=== PATIENT | male | born 1965 | race Hispanic/Latino ===

== ENCOUNTER 2017-01-11 16:55 | Emergency (ER) | payer MEDICAID ==
[2017-01-11 17:45] VITALS: BMI 29.1
[2017-01-11 17:48] VITALS: BP 164/96; PULSE 89; RESP 16; TEMP 99; O2SAT 97
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
--- NOTE | 2017-01-12 08:32 | RAD ---
PROCEDURE: Right Hip Radiographs. HISTORY: hip pain COMPARISON: None. FINDINGS: BONES: Normal. No fracture. JOINTS: Normal. SOFT TISSUES: Normal. OTHER FINDINGS: None. IMPRESSION: Normal radiographs of right hip.
== END 2017-01-11 20:29 | disposition left against medical advice (07) ==
LOC: ED 16:55
DX: M25.551 Pain in right hip (principal); F17.210 Nicotine dependence, cigarettes, uncomplicated; E11.9 Type 2 diabetes mellitus without complications; I10 Essential (primary) hypertension
CPT/HCPCS: 73502; 96372; 99282; J1885

== ENCOUNTER 2017-01-16 16:37 | Emergency (ER) | payer MEDICAID ==
[2017-01-16 16:37] VITALS: BMI 29.1
[2017-01-16 16:49] VITALS: BP 154/91; PULSE 96; RESP 16; TEMP 97.6; O2SAT 96
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
== END 2017-01-16 17:42 | disposition home or self-care (01) ==
LOC: ED 16:37
DX: S70.01XD Contusion of right hip, subsequent encounter (principal); W01.0XXD Fall on same level from slipping, tripping and stumbling without subsequent striking against object, subsequent encounter
CPT/HCPCS: 72170; 73502; 96372; 99284; J1885

== ENCOUNTER 2017-02-16 09:10 | Emergency (ER) | payer MEDICAID ==
[2017-02-16 09:10] VITALS: BMI 29.1
[2017-02-16 09:18] VITALS: PULSE 100; RESP 20; TEMP 98.3; O2SAT 98
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
[2017-02-16 10:07] VITALS: BP 125/84
== END 2017-02-16 10:12 | disposition home or self-care (01) ==
LOC: ED 09:10
DX: M54.5 Low back pain (principal)
CPT/HCPCS: 96372; 99283; J1885

== ENCOUNTER 2018-06-13 14:05 | Emergency (ER) | payer MEDICAID ==
[2018-06-13 14:06] VITALS: BMI 29.1
[2018-06-13 14:14] VITALS: BP 124/84; PULSE 85; RESP 18; TEMP 98; O2SAT 99
--- NOTE | 2018-06-13 14:49 | ED PDOC ---
Arrival/HPI - General Chief Complaint: Dental Pain Time Seen by Provider: 06/13/18 14:46 Historian: Patient - History of Present Illness Narrative History of Present Illness (Text): 06/13/18 14:52 53 year old male, with past medical history of COPD, alcoholism, depression, anxiety, and DM, presents to the Emergency department complaining of right sided upper gum discomfort since yesterday. Patient states limited food intake secondary to worsening pain prompting him to present to the Emergency department for medical evaluation. Patient informs similar symptoms in the past and was prescribed a "solution" by Dr. Beard with mild improvement to symptoms. Patient states he has a dentist appointment next month however the pain has been severe than before. Patient denies any fevers, chills, headache, dizziness, chest pain, shortness of breath, dyspnea on exertion, cough, abdominal pain, nausea, vomiting, diarrhea, back pain, neck pain, gum discharge or redness, or any other complaints. PMD: Dr. Beard Time/Duration: 24 hours Symptom Onset: Gradual Symptom Course: Unchanged Quality: Aching Activities at Onset: Light Context: Home Past Medical History - Provider Review Nursing Documentation Reviewed: Yes - Infectious Disease Hx of Infectious Diseases: None - Tetanus Immunization Tetanus Immunization: Unknown - Cardiac Hx Cardiac Disorders: Yes Hx Hypertension: Yes - Pulmonary Hx Respiratory Disorders: Yes Hx Asthma: Yes - Neurological Hx Neurological Disorder: Yes Hx Seizures: Yes - HEENT Hx HEENT Disorder: No - Renal Hx Renal Disorder: No - Endocrine/Metabolic Hx Endocrine Disorders: Yes Hx Diabetes Mellitus Type 2: Yes - Hematological/Oncological Hx Blood Disorders: No Hx Cancer: No - Integumentary Hx Dermatological Disorder: No - Musculoskeletal/Rheumatological Hx Musculoskeletal Disorders: No Hx Falls: No Hx Fractures: Yes (left leg) - Gastrointestinal Hx Gastrointestinal Disorders: No - Genitourinary/Gynecological Hx Genitourinary Disorders: No Hx Sexually Transmitted Diseases: No - Psychiatric Hx Psychophysiologic Disorder: Yes Hx Anxiety: Yes Hx Bipolar Disorder: Yes Hx Depression: Yes Hx Substance Use: Yes (former heroin) - Surgical History Hx Musculoskeletal Surgery: Yes Other/Comment: left LEG surgeries x6 2017 - Anesthesia Hx Anesthesia: Yes Hx Anesthesia Reactions: No Hx Malignant Hyperthermia: No Family/Social History - Physician Review Nursing Documentation Reviewed: Yes Family/Social History: No Known Family HX Smoking Status: Light Smoker < 10 Cigarettes Daily Hx Alcohol Use: No (former ETOH quit 12/2017) Hx Substance Use: Yes (former heroin) Substance used: HEROIN, INTRANASAL, 2 BAGS DAILY, LAST WAS THIS AM Allergies/Home Meds Allergies/Adverse Reactions: Allergies No Known Allergies Allergy (Verified 02/16/17 14:06) Home Medications: Home Meds Medication Instructions Recorded Confirmed traZODone [Desyrel] 100 mg PO HS 02/02/16 06/13/18 Cetirizine HCl [Zyrtec] 10 mg PO DAILY 12/06/16 06/13/18 Fenofibrate [Tricor] 145 mg PO DAILY 12/06/16 06/13/18 Fluticasone Nasal [Flonase] 1 actuation NS BID 12/06/16 06/13/18 Fluticasone/Salmeterol 250/50 1 puff IH Q12 08/13/17 06/13/18 [Advair Diskus 250/50] Oxycodone HCl/Acetaminophen 1 each PO PRN PRN 08/13/17 06/13/18 [Percocet 10-325 mg Tablet] ALPRAZolam [Xanax] 1 mg PO TID 06/13/18 06/13/18 Atorvastatin [Lipitor] 40 mg PO HS 06/13/18 06/13/18 Review of Systems - Physician Review All systems were reviewed & negative as marked: Yes - Review of Systems Constitutional: absent: Fevers ENT: Other (right sided upper gum discomfort) Respiratory: absent: SOB, Cough Cardiovascular: absent: Chest Pain, GAONA Gastrointestinal: absent: Abdominal Pain, Diarrhea, Nausea, Vomiting Musculoskeletal: absent: Back Pain, Neck Pain Skin: absent: Rash Neurological: absent: Headache, Dizziness Physical Exam - Physical Exam Narrative Physical Exam (Text): 06/13/18 14:56 Constitutional: No acute distress. Head: Normocephalic. Atraumatic. Eyes: PERRL. ENT: Moist mucous membranes. No teeth noted. Gum without any apparent redness, discharge or swelling. No visible salivary duct stones noted. Neck: Supple. Cardiovascular: Regular rate. Chest: No tenderness. Respiratory: Clear to auscultation bilaterally. GI: Soft. Nontender. Nondistended. Back: No CVA tenderness. Musculoskeletal: No tenderness or swelling of extremities. Skin: No rash. Neurologic: Alert, no focal deficit. Vital Signs Reviewed: Yes Vital Signs Temp Pulse Resp BP Pulse Ox 06/13/18 14:08 98.0 F 85 18 124/84 99 Temperature: Afebrile Blood Pressure: Normal Pulse: Regular Respiratory Rate: Normal Appearance: Positive for: Well-Appearing, Non-Toxic, Comfortable Pain Distress: None Mental Status: Positive for: Alert and Oriented X 3 Medical Decision Making ED Course and Treatment: 06/13/18 14:58 Impression: 53 year old male presents to the Emergency department complaining of right sided upper gum discomfort. Plan: Analgesia 1 hour prior to eating. Call and follow up with Dr. Beard and dentist more expeditiously. Monitor area and return to emergency department for any developing erythema, edema, discharge, pain, or fever. - Scribe Statement The provider has reviewed the documentation as recorded by the Scribe Fabian Ramirez. All medical record entries made by the Scribe were at my direction and personally dictated by me. I have reviewed the chart and agree that the record accurately reflects my personal performance of the history, physical exam, medical decision making, and the department course for this patient. I have also personally directed, reviewed, and agree with the discharge instructions and disposition. Disposition/Present on Arrival - Present on Arrival Any Indicators Present on Arrival: No History of DVT/PE: No History of Uncontrolled Diabetes: No Urinary Catheter: No History of Decub. Ulcer: No History Surgical Site Infection Following: Orthopedic Procedures - Disposition Have Diagnosis and Disposition been Completed?: Yes Diagnosis: Pain in gums Disposition: HOME/ ROUTINE Disposition Time: 14:48 Patient Plan: Discharge Condition: STABLE Discharge Instructions (ExitCare): Periodontal Disease Prescriptions: Acetaminophen [Tylenol 325mg tab] 2 tab PO Q4H #30 tab Ibuprofen [Motrin] 600 mg PO Q6 #25 tab Referrals: Esther Saavedra, [Primary Care Provider] - Follow up with primary Forms: [email or web address] (Lao)
== END 2018-06-13 15:00 | disposition home or self-care (01) ==
LOC: ED 14:05
DX: K06.9 Disorder of gingiva and edentulous alveolar ridge, unspecified (principal); E11.9 Type 2 diabetes mellitus without complications; F17.210 Nicotine dependence, cigarettes, uncomplicated; I10 Essential (primary) hypertension

== ENCOUNTER 2018-10-18 14:45 | Inpatient (IN) | payer MEDICAID | END 2018-10-20 11:10 | disposition left against medical advice (07) | LOC: ED 14:45 → ERH 17:37 → 2RNO 21:48 ==